=== PATIENT | male | born 1985 | race African-American/Black ===

== ENCOUNTER 2020-12-19 19:58 | Emergency (ER) | payer BC, MEDICAID, OTHER ==
[~2020-12-19] VITALS: Ht 182.9 cm; Wt 117.9 kg
[2020-12-19 22:45] VITALS: BP 147/87
[2020-12-20] MEDS ORDERED: KETOROLAC TROMETH 60MG/2ML VIAL IM ONE (00:45)
== END 2020-12-20 02:10 | disposition home or self-care (01) ==
LOC: ER 19:58
DX: S39.012A Strain of muscle, fascia and tendon of lower back, initial encounter (principal); S29.012A Strain of muscle and tendon of back wall of thorax, initial encounter; S63.691A Other sprain of left index finger, initial encounter; W22.8XXA Striking against or struck by other objects, initial encounter; Y93.89 Activity, other specified; Y92.89 Other specified places as the place of occurrence of the external cause; Y99.8 Other external cause status
CPT/HCPCS: 72070; 72100; 73120; 96372; 99284; J1885